=== PATIENT | male | born 1965 | race African-American/Black ===

== ENCOUNTER 2016-10-09 01:38 | Emergency (ER) | payer OTHER ==
[~2016-10-09] VITALS: Ht 172.7 cm; Wt 95.3 kg
[2016-10-09 02:11] LABS: ABSOLUTE NEUTROPHILS 4.6 thou/uL (1.4-8.2); BASOPHILS 0.8 % (0.0-2.0); EOSINOPHILS 2.2 % (0.0-3.0); HEMATOCRIT 56.4 % (42.0-52.0); HEMOGLOBIN 19.1 gm/dL (14.0-18.0); LYMPHOCYTES 31.2 % (24.0-44.0); MCH 30.9 pg (26.0-34.0); MCHC 33.9 g/dL (28.0-37.0); MCV 91.1 fL (80.0-100.0); PLATELET COUNT 400 thou/uL (150-400); POLYS 54.8 % (36.0-66.0); RBC 6.19 mil/uL (4.50-6.00); RDW 14.1 % (10.5-14.5); WBC 8.3 thou/uL (4.0-11.0)
[2016-10-09 02:14] LABS: CALCIUM 8.9 mg/dL (8.5-10.1); CREATININE 1.6 mg/dL (0.7-1.3); MANUAL DIFF NO; POTASSIUM 3.6 mmol/L (3.5-5.1)
[2016-10-09 02:21] LABS: ALBUMIN 4.1 g/dL (3.4-5.0); TOTAL BILIRUBIN 1.2 mg/dL (<0.1-1.0); TOTAL PROTEIN 7.9 g/dL (6.4-8.2)
[2016-10-09] MEDS ORDERED: BENTYL 20 MG TA20 M1 PO (03:53)
[2016-10-09] MEDS ORDERED: ONDANSETRON HCL4 M2 PO (03:53)
[2016-10-09 04:40] VITALS: BP 133/91
== END 2016-10-09 03:53 | disposition home or self-care (01) ==
LOC: ER 01:38
PROVIDERS: Emergency Medicine
DX: R11.2 Nausea with vomiting, unspecified (principal); R19.7 Diarrhea, unspecified